=== PATIENT | female | born 1990 | race Two or more races ===

== ENCOUNTER 2016-08-04 18:23 | Emergency (ER) | payer OTHER ==
[~2016-08-04] VITALS: Ht 170.2 cm; Wt 87.5 kg
[~2016-08-04 18:23] MED LIST: HYDR-906 PO; IBUP-1542 PO
[2016-08-04 18:50] VITALS: Ht 170.2 cm; Wt 87.5 kg
[2016-08-04] MEDS ORDERED: IBUPROFEN 600 MG TAB PO ONE (19:30)
[2016-08-04] MEDS ORDERED: IBUP-1542 PO (19:38)
--- NOTE | 2016-08-04 19:40 | ERD ---
ER Documentation Chief Complaint Date/Time DATE: 08/04/16 TIME: 19:38 Chief Complaint LT ARM PAIN S/P PLASMA DONATION X 2 DAYS AGO. HPI This is a 26-year-old female who presents to the emergency room for evaluation of left arm pain. This patient did donate plasma on Wednesday, August 01, 2016. She then states that they were unable to access any vasculature on the left side, she was able to donate from her right upper extremity and presents today with pain in the left upper extremity which she localizes to the left antecubital fossa. No fevers, no other trauma. ROS All systems reviewed and are negative except as per history of present illness. Medications Home Meds Active Scripts Hydrocodone/Acetaminophen ([place] 5-325 Tablet) 1 Each Tablet, 1 TAB PO Q6H Y for PAIN, #15 TAB Prov:YASMIN RAMIREZ 06/15/16 Ibuprofen* (Motrin*) 600 Mg Tab, 600 MG PO Q8, #30 TAB Prov:DINORAH HANKS PA-C 05/27/16 Hydrocodone/Acetaminophen ([place] 5-325 Tablet) 1 Each Tablet, 1 TAB PO Q6H Y for PAIN, #3 TAB Prov:DINORAH HANKS PA-C 05/27/16 Allergies Allergies: Coded Allergies: No Known Allergy (Unverified , 06/15/16) PMhx/Soc Medical and Surgical Hx: pt denies Surgical Hx History of Surgery: Yes () Anesthesia Reaction: No Hx Neurological Disorder: No Hx Respiratory Disorders: No Hx Cardiac Disorders: No Hx Psychiatric Problems: No Hx Miscellaneous Medical Probl: Yes ("pre-diabetic") Hx Alcohol Use: Yes (social drinker) Hx Substance Use: No Hx Tobacco Use: No Smoking Status: Never smoker Physical Exam Vitals Vital Signs Date Time Temp Pulse Resp B/P Pulse Ox O2 Delivery O2 Flow Rate FiO2 08/04/16 18:50 99.0 91 18 127/83 98 Physical Exam Const: No acute distress Head: Atraumatic Eyes: Normal Conjunctiva ENT: Normal External Ears, Nose and Mouth. Neck: Full range of motion..~ No meningismus. Resp: Clear to auscultation bilaterally Cardio: Regular rate and rhythm, no murmurs Abd: Soft, non tender, non distended. Normal bowel sounds Skin: No petechiae or rashes Back: No midline or flank tenderness Ext: Mild tenderness to palpation over the left antecubital fossa, distally ulnar and radial pulses are equal bilaterally, no cyanosis, or edema Neur: Awake and alert Psych: Normal Mood and Affect Results 24 hrs Current Medications Medications (Trade) Dose Ordered Sig/Josefina Route PRN Reason Start Time Stop Time Status Last Admin Dose Admin Ibuprofen (Motrin) 600 mg ONCE ONCE PO 08/04/16 19:30 08/04/16 19:31 DC 08/04/16 19:25 Procedures/MDM This 26-year-old female presents to the ER for evaluation of left upper extremity pain. This patient did donate plasma on August 01. She does have symptoms of thrombophlebitis. She was given Motrin here in the emergency room. She will be discharged home with a prescription for Motrin as an outpatient. No signs of cellulitis or abscess formation. She is neurovascular intact distally to the pain. Departure Diagnosis: Primary Impression: Thrombophlebitis Condition: Stable BELEN CASTILLO DO Aug 04, 2016 19:40
[2016-08-04 19:52] VITALS: BP 133/84; PULSE 81; RESP 18; TEMP 98.8
== END 2016-08-04 19:55 | disposition home or self-care (01) ==
LOC: FTE 18:23
DX: I80.9 Phlebitis and thrombophlebitis of unspecified site (principal)
CPT/HCPCS: Z7502; Z7610; 99283